=== PATIENT | female | born 1930 | race Caucasian/White ===

== ENCOUNTER 2018-05-23 14:25 | Observation (INO) ==
--- NOTE | 2018-05-23 14:58 | Emergency Department Note ---
Disposition Clinical Impression: Weakness generalized, Multiple falls, Hyponatremia Chest pain Qualifiers: Chest pain type: unspecified Qualified Code(s): R07.9 - Chest pain, unspecified Disposition: Admitted As Inpatient Condition: Good Time of Disposition: 16:18 Chest Pain HPI - General Chief Complaint: ED Chest Pain Stated Complaint: CP Time Seen by Provider: 05/23/18 14:27 Source: patient Mode of arrival: EMS Limitations: no limitations Vital Signs Reviewed: Yes Nursing Notes Reviewed: Yes - History of Present Illness HPI Narrative: Patient presents to the ED if the chief complaint of chest pain. Patient states that she has had chest pain for 10 years. States that she has sharp chest pain and all chest pain. States that the dull chest pain was "extra dull " today, so she called EMS. She denies any associated shortness of breath. She does state that she has frequent falls and has been following for over a year. States that she was admitted back in December, but continues to fall. She denies any headache or changes in vision. No neck pain. No current chest pain or shortness of breath. Denies any abdominal pain, nausea, vomiting, diarrhea. No pain or swelling in her legs. No focal or localized weakness Severity scale (1-10): 5 - Related Data Home Medications Medication Instructions Recorded Confirmed ALPRAZolam [Xanax 0.25 MG Tablet] 0.25 mg PO TID 12/15/17 05/23/18 Desipramine [Norpramine] 25 mg PO QAM 12/15/17 05/23/18 Nitroglycerin [Nitrostat] 0.4 mg SL Q5M PRN 12/15/17 05/23/18 Desipramine [Norpramine] 50 mg PO HS 05/23/18 05/23/18 Potassium Chloride [K-Tab ER] 20 meq PO DAILY 05/23/18 05/23/18 Previous Rx's Medication Instructions Recorded Metoprolol XL (24 HR) Succ [Toprol 50 mg PO DAILY #30 tab.er.24h 12/17/17 XL] Omeprazole [PriLOSEC] 20 mg PO DAILY PRN #0 12/17/17 Allergies Allergy/AdvReac Type Severity Reaction Status Date / Time No Known Allergies Allergy Verified 01/18/16 17:30 Review of Systems: As reviewed in the HPI. All other systems reviewed are negative or normal. Chest Pain PMH - Past Medical History Medical history: Reports: arthritis, GERD, hypertension Psychiatric history: Reports: anxiety, depression - Social History Smoking Status: Never smoker Alcohol use: Reports: none Drug use: Reports: none Physical Exam CONSTITUTIONAL: [well appearing in no acute distress] SKIN: [Warm, dry, and intact without rash] EYES: [extraocular movements are grossly intact, clear conjunctiva] HENT: [Normocephalic, atraumatic, moist mucus membranes] NECK: [no obvious swelling, normal range of motion] PULMONARY: [normal chest rise and fall, no respiratory distress or stridor CARDIOVASCULAR: [regular rate, distal extremities are warm and well perfused] GASTROINSTESTINAL: [nondistended, non-tender] GENITOURINARY: [deferred] NEUROLOGIC: [normal speech, moves all extremities, GCS 15] MUSCULOSKELETAL: [no gross deformities, atraumatic] PSYCHIATRIC: [normal mood and affect] - General General appearance: alert, in no apparent distress Course Course Narrative: Patient presenting with chest pain, frequent falls, generalized weakness. We will check cardiac labs and reevaluate. - Reevaluation(s) Reevaluation #1: Patient is very hyponatremic. She has been low in the past, but this is lowest she has ever been. This could be contributing to her falls. We will admit to the hospital service for further workup of her hyponatremia and chest pain. Vital Signs Temperature 97.7 F 05/23/18 14:26 Pulse Rate 92 05/23/18 14:26 Respiratory Rate 16 05/23/18 14:26 Blood Pressure 178/108 05/23/18 14:26 O2 Sat by Pulse Oximetry 98 05/23/18 14:26 Temperature 97.6 F 05/23/18 18:00 Pulse Rate 92 05/23/18 19:54 Respiratory Rate 17 05/23/18 18:00 Blood Pressure 162/82 05/23/18 19:54 O2 Sat by Pulse Oximetry 97 05/23/18 18:00 Oxygen Delivery Oxygen Delivery Room Air Chest Pain - Lab Data Result diagrams: 05/23/18 15:03 05/23/18 15:03 Lab Results 05/23/18 05/23/18 Range/Units 15:03 15:03 WBC 7.6 (4.3-11.1) K/mcL RBC 4.54 (3.82-4.97) M/mcL Hgb 15.1 (11.5-15.4) g/dL Hct 43.4 (35.3-44.9) % MCV 95.6 (83.0-100.0) fL MCH 33.3 (28.0-33.3) pg MCHC 34.8 (31.6-35.5) g/dL RDW 12.5 (11.5-14.5) % Plt Count 198 (140-400) K/mcL MPV 8.6 L (9.4-12.4) fL Immature Gran % 0.5 (0-4) % Seg Neutrophils % 71.8 % Lymphocytes % 15.9 % Monocytes % 9.6 % Eosinophils % 1.7 % Basophils % 0.5 % Neutrophils # 5.5 (1.6-8.9) K/mcL Lymphocytes # 1.2 (0.6-4.6) K/mcL Monocytes # 0.7 (0.0-1.3) K/mcL Eosinophils # 0.1 (0.0-0.6) K/mcL Basophils # 0.0 (0.0-0.2) K/mcL Sodium 127 L (136-145) mEq/L Potassium 4.5 (3.5-5.1) mEq/L Chloride 94 L (98-107) mEq/L Carbon Dioxide 26 (23-29) mEq/L BUN 11 (8-23) mg/dL Creatinine 0.90 (0.60-1.20) mg/dL Est GFR ( Amer) > 60 (> 60) Est GFR (Non-Af Amer) 59 L (> 60) BUN/Creatinine Ratio 12 (6-26) Glucose 126 H (70-105) mg/dL Calculated Osmolality 265 L (280-300) Uric Acid 4.8 (2.3-7.6) mg/dL Calcium 9.9 (8.6-10.3) mg/dL Troponin I < 0.03 (< 0.04) ng/mL TSH 1.545 (0.340-5.600) mcIU/mL Attestation Statement - Attestation Attestation: Dr Diallo note: Pt seen in conjunction w/ resident Dr Pierre ; please see Dr Pierre's charting for complete documentation; I spent face to face time w/ pt and agree w/ pt's treatment and disposition; patient has vague presentation of weakness and is been present for many many days. No chest pain or shortness of breath that is noted she is been complaining of chest pain as well for "a long time. No shortness of breath. Vital signs are stable. Progressive worsening and her hyponatremia by recent laboratory evaluation. Clinically she is having symptomatic hyponatremia. Accepted by the hospitalist for further care admitted in stable condition
[2018-05-23 15:17] LABS: Basophils % 0.5 %; Eosinophils # 0.1 K/mcL (0.0-0.6); Eosinophils % 1.7 %; Hematocrit 43.4 % (35.3-44.9); Hemoglobin 15.1 g/dL (11.5-15.4); Immature Granulocytes % 0.5 % (0-4); Lymphocytes # 1.2 K/mcL (0.6-4.6); Lymphocytes % 15.9 %; Mean Corpuscular HGB Conc 34.8 g/dL (31.6-35.5); Mean Corpuscular Hemoglobin 33.3 pg (28.0-33.3); Mean Corpuscular Volume 95.6 fL (83.0-100.0); Mean Platelet Volume 8.6 fL (9.4-12.4); Monocytes # 0.7 K/mcL (0.0-1.3); Monocytes % 9.6 %; Neutrophils # 5.5 K/mcL (1.6-8.9); Platelet Count 198 K/mcL (140-400); Red Blood Count 4.54 M/mcL (3.82-4.97); Red Cell Distribution Width 12.5 % (11.5-14.5); Segmented Neutrophils % 71.8 %
[2018-05-23 15:38] LABS: BUN/Creatinine Ratio 12 (6-26); Blood Urea Nitrogen 11 mg/dL (8-23); Calcium 9.9 mg/dL (8.6-10.3); Carbon Dioxide 26 mEq/L (23-29); Chloride 94 mEq/L (98-107); Glucose 126 mg/dL (70-105); Osmolality,Calculated 265 (280-300); Potassium 4.5 mEq/L (3.5-5.1); Sodium 127 mEq/L (136-145); Troponin I < 0.03 ng/mL (< 0.04); eGFR For Non-African Americans 59 (> 60)
[2018-05-23] MEDS ORDERED: 0.9 % Sodium Chloride 1,000 ML IVC ONE (15:43)
[2018-05-23 16:10] LABS: Uric Acid 4.8 mg/dL (2.3-7.6)
[2018-05-23 16:23] LABS: Thyroid Stimulating Hormone 1.545 mcIU/mL (0.340-5.600)
[2018-05-23] MEDS ORDERED: Naloxone 0.4 MG/ML INJ IVP PRN (17:06)
--- NOTE | 2018-05-23 17:53 | Internal Med History&Physical ---
<Deedee Earl - Last Filed: 05/23/18 18:11> Date of Encounter: 05/23/18 Time of Encounter: 17:43 Internal Medicine - H&P: HPI Chief complaint: weakness Admitted From: Emergency Dept Plans for Post Hospital Care: Home History of present illness: Ms. Black is a 87 year old female past medical hx of arthritis GERD HTN frequent falls chronic hyponatremia CKD 3. Patient states that she has had several fall over the past year She Hospitalized in December for fall. Her most recent fall occured April 19 at that time she "black ou" and had numbness and tingling around mouth. She did not seek medical attention for this and sx resolved on own. Since this fall she has been mostly bedridden. Today she has felt weak all over and has body aches . Denies anty specific chest describes all over body pain. She states she is unable to stand and uses rollarater to assist her to her bathroom. She lives with daughter in law however is frequently alone since her daughter in law works 2 jobs. She presnted to the ED via EMS for the above complaints In the ED labwork revealed hyponatremia , troponin negative EKG SR with RBB which appears to be present in previous EKG CXR with no acute process. She will be admitted for further workup and evaluation, for hyponatremia weakness falls She is hemodynamically stable at this time Past Med Surg Social Fam HX - Past Medical History Medical history: arthritis, GERD, hypertension Additional medical history: kidney disease. Psychiatric history: anxiety, depression - Past Surgical History Additional surgical history: UTERINE CA - Social History Smoking Status: Never smoker Smokeless Tobacco Status: No Alcohol use: none Drug use: none - Family History Mother Living Status: Hx Family Cardiac Disorders: Yes (HTN) Hx Family Endocrine Disorder: Yes (diabetes ) Father Living Status: Hx Family Cardiac Disorders: Yes (heart disease ) Hx Family Endocrine Disorder: Yes (diabetes ) Internal Medicine - H&P: Meds ALPRAZolam [Xanax 0.25 MG Tablet] 0.25 mg PO TID 12/15/17 [History] Desipramine [Norpramine] 25 mg PO QAM 12/15/17 [History] Nitroglycerin [Nitrostat] 0.4 mg SL Q5M PRN 12/15/17 [History] Metoprolol XL (24 HR) Succ [Toprol XL] 50 mg PO DAILY #30 tab.er.24h 12/17/17 [ Rx] Omeprazole [PriLOSEC] 20 mg PO DAILY PRN #0 12/17/17 [Rx] Desipramine [Norpramine] 50 mg PO HS 05/23/18 [History] Potassium Chloride [K-Tab ER] 20 meq PO DAILY 05/23/18 [History] 3 Allergy/AdvReac Type Severity Reaction Status Date / Time No Known Allergies Allergy Verified 01/18/16 17:30 All Systems PM: A 10-system review of systems was performed and is negative for pertinent findings except as documented above in the HPI. - Constitutional Constitutional: falls, weakness, no chills, no fever(s), no night sweats - EENT Eyes: no change in vision, no discharge, no pain, no photophobia Ears: no ear discharge, no ear pain, no tinnitus Nose, mouth and throat: no dysphagia, no nasal discharge, no neck pain, no sore throat - Cardiovascular Cardiovascular ROS IM: syncope, no chest pain, no diaphoresis, no dyspnea, no lightheadedness, no palpitations - Respiratory Respiratory: no cough, no dyspnea, no wheezing, no excessive phlegm production - Gastrointestinal Gastrointestinal: no abdominal pain, no diarrhea, no hematemesis, no hematochezia, no melena, no nausea, no vomiting - Genitourinary Genitourinary: no change in urinary stream, no dysuria, no flank pain, no hematuria - Musculoskeletal Musculoskeletal ROS IM: no numbness, no tingling - Integumentary Integumentary IM: no rash, no unusual bruising - Neurological Neurological ROS: no confusion, no convulsions, no focal weakness, no numbness, no tingling, no tremor(s) - Hematologic/Lymphatic Hematologic/Lymphatic: no easy bruising - Constitutional Vitals: Temp Pulse Resp BP Pulse Ox 97.7 F 92 18 112/58 98 05/23/18 14:26 05/23/18 14:26 05/23/18 17:03 05/23/18 17:03 05/23/18 14:26 General appearance: Present: A&O X 3 - Head Head exam: Present: atraumatic, normocephalic - Eye Eye exam: Present: PERRL, conjuntiva pink, sclera anicteric Pupils: Present: PERRL - Neck Neck exam general surgery: Present: supple, trachea midline. Absent: lymphadenopathy - Respiratory Respiratory exam: Present: CTAB. Absent: accessory muscle use, rales, rhonchi, wheezes - Cardiovascular Cardiovascular exam: Present: RRR, +S1, +S2. Absent: diastolic murmur, gallop, rubs, systolic murmur - GI/Abdominal GI/Abdominal exam: Present: normal bowel sounds, soft, no peritoneal signs. Absent: distended, tenderness - Extremities Exam Extremities exam: Present: warm, radial pulses palpable and symmetrical. Absent : calf tenderness, cyanotic, pedal edema - Neurological Exam Neurological exam: Present: CN II-XII intact, oriented X3, no focal deficits. Absent: pronater drift, facial droop, speech deficit - Skin Skin exam: Present: dry, intact Internal Med - H&P Results - Labs CBC & Chem 7: 05/23/18 15:03 05/23/18 15:03 - EKG Data EKG shows normal: sinus rhythm - EKG Data Prior EKG available for review: yes When compared to previous EKG: there is no significant change - Diagnostic Studies Chest x-ray Additional comments: Chest X-Ray 05/23/18 14:55 IMPRESSION: Stable exam. Low lung volumes. Scarring at the right parahilar region. D/ / Giles Belle MD / Giles Belle MD Interpreting Provider: Giles Belle MD - Assessment and plan (1) Hyponatremia Current Visit: Yes Status: Acute Assessment and plan: 1 127 on presentation- this appears to be chronic - Has hx of diuretic use however not on any at this time. No neurological deficits She was given 0.9 NS in the ED we will recheck Na later this evening Will check urine NA, urine osmo May need to start on salt Tabs patient reports poor po intake (2) Multiple falls Current Visit: Yes Status: Acute Assessment and plan: Patient has had muliple fall over the past year. Last fall in April she black out and numbness - which resolved- we will work up for syncope Fall precaution social media marketing manager consult for discharge planning- she may need ECF placement avoid sedating medications orthostatic VS echo carotid doppler cardiac monitoring (3) Weakness generalized Current Visit: Yes Status: Acute Assessment and plan: 1 we will check thiamin B12 consult PT OT (4) Hypertension Current Visit: No Status: Chronic Assessment and plan: presently controlled we cont with metoprolol and monitor Qualifiers: Hypertension type: essential hypertension Qualified Code(s): I10 - Essential (primary) hypertension (5) DVT prophylaxis Current Visit: Yes Status: Acute Assessment and plan: heparin subque - Time Spent With Patient Total time spent is greater than 50% in coordination of care (as documented) at patient's floor/unit and/or counseling patient: <Delisa Kathleen - Last Filed: 05/23/18 19:01> Date of Encounter: 05/23/18 Internal Medicine - H&P: HPI History of present illness: Ms. Black is a 87 year old female All Systems PM: A 10-system review of systems was performed and is negative for pertinent findings except as documented above in the HPI. - Constitutional Vitals: Temp Pulse Resp BP Pulse Ox 97.6 F 86 17 182/95 97 05/23/18 18:00 05/23/18 18:00 05/23/18 18:00 05/23/18 18:01 05/23/18 18:00 Internal Med - H&P Results - Labs CBC & Chem 7: 05/23/18 15:03 05/23/18 15:03 - Attending Attestation I have seen and examined this patient independently. I have discussed with KAITY Reese Rajat regarding the management plan. Agree with the documentation. - Assessment and plan (1) Weakness generalized Current Visit: Yes Status: Acute (2) Hypertension Current Visit: No Status: Chronic Qualifiers: Hypertension type: essential hypertension Qualified Code(s): I10 - Essential (primary) hypertension (3) Multiple falls Current Visit: Yes Status: Acute (4) Hyponatremia Current Visit: Yes Status: Acute (5) DVT prophylaxis Current Visit: Yes Status: Acute - Time Spent With Patient Total time spent is greater than 50% in coordination of care (as documented) at patient's floor/unit and/or counseling patient:
[2018-05-23] MEDS: Acetaminophen 325 MG TABLET PO PRN (22:23)
[2018-05-23] MEDS: *HR* Heparin 5,000 UNIT/ML VIAL SQ SCH (22:24)
[2018-05-24 03:34] LABS: Basophils % 0.5 %; Eosinophils # 0.4 K/mcL (0.0-0.6); Eosinophils % 5.4 %; Hematocrit 38.2 % (35.3-44.9); Immature Granulocytes % 0.3 % (0-4); Mean Corpuscular HGB Conc 34.3 g/dL (31.6-35.5); Mean Corpuscular Hemoglobin 32.5 pg (28.0-33.3); Mean Corpuscular Volume 94.8 fL (83.0-100.0); Mean Platelet Volume 8.6 fL (9.4-12.4); Monocytes # 0.7 K/mcL (0.0-1.3); Monocytes % 9.9 %; Neutrophils # 4.2 K/mcL (1.6-8.9); Platelet Count 202 K/mcL (140-400); Red Blood Count 4.03 M/mcL (3.82-4.97); Red Cell Distribution Width 12.7 % (11.5-14.5); Segmented Neutrophils % 56.9 %
[2018-05-24 03:35] LABS: Hemoglobin 13.1 g/dL (11.5-15.4)
[2018-05-24 03:54] LABS: BUN/Creatinine Ratio 13 (6-26); Blood Urea Nitrogen 9 mg/dL (8-23); Calcium 9.3 mg/dL (8.6-10.3); Carbon Dioxide 23 mEq/L (23-29); Chloride 99 mEq/L (98-107); Glucose 101 mg/dL (70-105); Magnesium 1.6 mg/dL (1.6-2.6); Osmolality,Calculated 269 (280-300); Potassium 3.9 mEq/L (3.5-5.1); Sodium 130 mEq/L (136-145); eGFR For Non-African Americans > 60 (> 60)
[2018-05-24] MEDS: *HR* Heparin 5,000 UNIT/ML VIAL SQ SCH ×2 (06:33→18:04)
[2018-05-24] MEDS: Acetaminophen 325 MG TABLET PO PRN ×3 (06:37→22:27)
--- NOTE | 2018-05-24 07:46 | Internal Med Progress Note ---
Hospitalist Progress Note - Encounter Date of Encounter: 05/24/18 Time of Encounter: 07:30 - Subjective Interval History: No acute events overnight - Exam Vitals: Temp Pulse Resp BP Pulse Ox 97.4 F L 91 16 125/71 93 05/24/18 07:03 05/24/18 07:03 05/24/18 07:03 05/24/18 07:03 05/24/18 07:03 Exam: Gen - Awake, alert, oriented x 3, no acute distress HEENT - NCAT, PERRLA, EOMI, hearing grossly intact, oropharynx benign CV - RRR, normal S1 and S2, no M/R/G, no BLE edema Resp - Normal WOB, CTAB, no W/R/R GI - Soft, NT/ND, no masses, normal bowel sounds Skin - Warm, dry, no rashes/lesions/ulcers Psych - Normal mood and affect, no depression or anxiety - Assessment and Plan (1) Weakness generalized Current Visit: Yes Status: Acute Assessment and Plan: Possibly secondary to dehydration vs deconditioning. B12 levels came back WNL. Follow physical therapy recs (2) Hypertension Current Visit: No Status: Chronic Assessment and Plan: presently controlled with metoprolol. Continue to monitor (3) Multiple falls Current Visit: Yes Status: Acute Assessment and Plan: Patient has had multiple falls over the past year. Last fall in April she black out and numbness - which resolved- we will work up for syncope Fall precaution social service liaison consult for discharge planning- she may need ECF placement avoid sedating medications Follow up echo and carotid doppler to rule out any cardiac pathology as a reason for recurrent syncope May also consider weaning patient off TCA (desipramine) as an outpatient as a possible etiology for falls (4) Hyponatremia Current Visit: Yes Status: Acute Assessment and Plan: Resolving with IV fluids (5) DVT prophylaxis Current Visit: Yes Status: Acute Assessment and Plan: heparin subque - Time Spent with Patient Total time spent is greater than 50% in coordination of care (as documented) at patient's floor/unit and/or counseling patient: Internal Medicine: Result - Labs CBC & Chem 7: 05/24/18 03:23 05/24/18 03:23 Labs: Short CBC 05/24/18 Range/Units 03:23 WBC 7.4 (4.3-11.1) K/mcL Hgb 13.1 D (11.5-15.4) g/dL Hct 38.2 (35.3-44.9) % Plt Count 202 (140-400) K/mcL Neutrophils # 4.2 (1.6-8.9) K/mcL BMP 05/23/18 05/24/18 20:59 03:23 Sodium 132 L 130 L Potassium 3.9 Chloride 99 Carbon Dioxide 23 BUN 9 Creatinine 0.70 Glucose 101 Calcium 9.3 Cardiac Enzymes 05/23/18 05/24/18 Range/Units 20:59 03:23 Troponin I < 0.03 < 0.03 (< 0.04) ng/mL - Impressions Impressions Head CT 05/23/18 18:16 IMPRESSION: No acute intracranial abnormality. D/ / 05/23/2018 22:49:31 Geovany Lemus / gonzalez Interpreting Provider: Geovany Lemus Cervical Spine CT 05/23/18 18:17 IMPRESSION: No acute abnormality of the cervical spine. Spondylotic changes as described. D/ / Po Taylor MD / Po Taylor MD Interpreting Provider: Po Taylor MD Consult Discharge Plan - Plan Referrals: NONE,PCP [Primary Care Provider] - (2) Hypertension Qualifiers: Hypertension type: essential hypertension Qualified Code(s): I10 - Essential (primary) hypertension
--- NOTE | 2018-05-24 08:14 | Electrocardiograph Report ---
[place] [id number] Test Date: 2018-05-23 Pat Name: Hortencia Black Department: Room: 2A11 Gender: F Paint Supervisor: : [id number] Requested By: [id number] Order Number: [id number] Reading MD: Issa Maguire Measurements Intervals [place] Rate: 86 P: 36 MT: 163 QRS: 28 QRSD: 140 T: 11 QT: 414 QTc: 496 Interpretive Statements Sinus rhythm Right bundle branch block Electronically Signed On 05-24-2018 8:13:00 EDT by Issa Maguire
[2018-05-24] MEDS: Metoprolol XL (24 HR) Succ 50 MG TAB.ER.24H PO SCH (09:08)
[2018-05-24] MEDS ORDERED: ALPRAZolam 0.25 MG TABLET PO ONE (21:30)
[2018-05-25] MEDS: *HR* Heparin 5,000 UNIT/ML VIAL SQ SCH (06:15)
[2018-05-25] MEDS: Metoprolol XL (24 HR) Succ 50 MG TAB.ER.24H PO SCH (07:46)
--- NOTE | 2018-05-25 08:41 | Discharge Summary ---
- NOTES TO OUTPATIENT PROVIDER Notes to Outpatient Provider: Desipramine can cause weakness and PCP should consider weaning her off this medication Orders not resulted at time of discharge: Pending orders 05/23/18 17:06 Urinalysis reflex Microscopic [URIN] Routine 05/24/18 03:23 Vitamin B1 (Thiamine) Whole Bl AM 0400 Date of Encounter: 05/25/18 Time of Encounter: 08:35 - Discharge Diagnosis (1) Weakness generalized Priority: Primary Status: Acute Assessment and Plan: Ms. Black is a 87 year old female past medical hx of arthritis GERD HTN frequent falls chronic hyponatremia CKD 3. Patient states that she has had several fall over the past year. She hospitalized in December for fall. She complained of weakness all over and body aches. She was assessed with weakness and syncope possibly secondary to dehydration vs deconditioning.She was hydrated with IV fluids and had significant improvement by the next day. CT head and cervical spine CT came back WNL. An echo was done for her syncopal episodes which also came back WNL. She was seen by physical therapy who recommended SNF, but due to out of pocket costs, family decided to take her home with home health. She was also counseled regarding the use of TCA (desipramine) which may be contributing to her weakness and will follow up with her primary care to possibly be weaned off this medication. (2) Hypertension Priority: Secondary Status: Chronic Qualifiers: Hypertension type: essential hypertension Qualified Code(s): I10 - Essential (primary) hypertension (3) Multiple falls Priority: Secondary Status: Acute (4) Hyponatremia Priority: Secondary Status: Acute (5) DVT prophylaxis Priority: Secondary Status: Acute Hospital course: Ms. Black is a 87 year old female - Time Spent with Patient Total time spent providing and/or coordinating discharge services: - Discharge Medications Home Medications: ALPRAZolam [Xanax 0.25 MG Tablet] 0.25 mg PO TID 12/15/17 [History] Desipramine [Norpramine] 25 mg PO QAM 12/15/17 [History] Nitroglycerin [Nitrostat] 0.4 mg SL Q5M PRN 12/15/17 [History] Metoprolol XL (24 HR) Succ [Toprol Xl] 50 mg PO DAILY #30 tab.er.24h 12/17/17 [ Rx] Omeprazole [PriLOSEC] 20 mg PO DAILY PRN #0 12/17/17 [Rx] Desipramine [Norpramine] 50 mg PO HS 05/23/18 [History] Potassium Chloride [K-Tab ER] 20 meq PO DAILY 05/23/18 [History] Allergies/Adverse Reactions: 3 Allergy/AdvReac Type Severity Reaction Status Date / Time No Known Allergies Allergy Verified 01/18/16 17:30 Date of admission: 05/23/18 16:22 Primary care physician: PCP NONE Consults: 05/23/18 17:09 Consult to Occupational Therapy [CONS] Routine Comment: Evaluate, develop and implement POC Reason for Consult: frequent falls Does patient have active BEDREST order?: No Is patient medically & hemodynamically stable?: Yes Patient assessed for mobility or mobilized this visit?: No Consult to Division Operations Specialist [CONS] Routine Reason for SW Consult: discharge planning 05/23/18 17:10 Consult to Physical Therapy [CONS] Routine Comment: Evaluate, develop and implement POC Reason for Consult: frequent falls Does patient have active BEDREST order?: No Is patient medically & hemodynamically stable?: Yes Patient assessed for mobility or mobilized this visit?: Yes 05/24/18 18:07 Consult to Pastoral Services [CONS] Routine Comment: Church - Constitutional Vitals: Temp Pulse Resp BP Pulse Ox 97.9 F 76 18 160/76 93 05/25/18 07:19 05/25/18 07:19 05/25/18 07:19 05/25/18 07:19 05/25/18 07:19 General appearance: Present: A&O X 3 - Head Head exam: Present: atraumatic, normocephalic - Eye Eye exam: Present: PERRL, conjuntiva pink, sclera anicteric Pupils: Present: PERRL - Neck Neck exam general surgery: Present: supple, trachea midline. Absent: lymphadenopathy - Respiratory Respiratory exam: Present: CTAB. Absent: accessory muscle use, rales, rhonchi, wheezes - Cardiovascular Cardiovascular exam: Present: RRR, +S1, +S2. Absent: diastolic murmur, gallop, rubs, systolic murmur - GI/Abdominal GI/Abdominal exam: Present: normal bowel sounds, soft, no peritoneal signs. Absent: distended, tenderness - Extremities Exam Extremities exam: Present: warm, radial pulses palpable and symmetrical. Absent : calf tenderness, cyanotic, pedal edema - Neurological Exam Neurological exam: Present: CN II-XII intact, oriented X3, no focal deficits. Absent: pronater drift, facial droop, speech deficit - Skin Skin exam: Present: dry, intact - Patient Status Disposition: Home Health Service Condition: Good - Discharge Instructions Follow Up With: Milind Meek MD [Partnered Physician] - (Please call for follow up Sunday) NONE,PCP [Primary Care Provider] -
--- NOTE | 2018-05-25 08:42 | Physician Discharge Referral ---
Home Health/Hosp Referral Info Transfer to: Home Health - Diagnosis (1) Weakness generalized Priority: Primary Status: Acute (2) Hypertension Priority: Secondary Status: Chronic (3) Multiple falls Priority: Secondary Status: Acute (4) Hyponatremia Priority: Secondary Status: Acute (5) DVT prophylaxis Priority: Secondary Status: Acute - Respiratory Orders Smoking Cessation: Smoking cessation has been advised. For more information, call the [place] Tobacco Quit Line at 5-526-EAPL-NOW. - Activity Activity Orders: Ambulate - Services Needed Following services are medically necessary services: Nursing, Home Health Aide, Physical Therapy - Transfer Medications Home Medications: ALPRAZolam [Xanax 0.25 MG Tablet] 0.25 mg PO TID 12/15/17 [History] Desipramine [Norpramine] 25 mg PO QAM 12/15/17 [History] Nitroglycerin [Nitrostat] 0.4 mg SL Q5M PRN 12/15/17 [History] Metoprolol XL (24 HR) Succ [Toprol Xl] 50 mg PO DAILY #30 tab.er.24h 12/17/17 [ Rx] Omeprazole [PriLOSEC] 20 mg PO DAILY PRN #0 12/17/17 [Rx] Desipramine [Norpramine] 50 mg PO HS 05/23/18 [History] Potassium Chloride [K-Tab ER] 20 meq PO DAILY 05/23/18 [History] Allergies/Adverse Reactions: 3 Allergy/AdvReac Type Severity Reaction Status Date / Time No Known Allergies Allergy Verified 01/18/16 17:30 Certification: Further, I certify that my clinical findings support that this patient is homebound (i.e. absences from home require considerable and taxing effort and are for medical reasons or bahai services or infrequently or short duration when for other reasons) because: Homebound Reason: Patient requires assistance of a person or device to safely leave home Attestation: My signature below is to certify that this patient is under my care and that I, or nurse practitioner, or a physician's floor covering printer assistant working with me, has a face-to -face encounter with this patient.
[2018-05-25] MEDS: Acetaminophen 325 MG TABLET PO PRN (14:03)
[2018-05-25 16:23] VITALS: BP 159/80
== END 2018-05-25 18:02 | disposition home health service (06) ==
LOC: 2ANU 14:25 → EMEROOARM 14:25 → 2ANU 17:06
PROVIDERS: ADMIT Internal Medicine; ATTEND Internal Medicine